=== PATIENT | female | born 1995 | race Caucasian/White ===

== ENCOUNTER 2022-01-27 09:10 | Inpatient (IN) | payer SELFPAY ==
--- NOTE | 2022-01-27 09:29 | DI.US.S_ITS ---
PROCEDURE: US OB LIMITED INDICATIONS: DECELERATED HEART RATE. GROWTH AND BIOPHYSICAL OUTSIDE/PRIOR DATING DATA: Last menstrual period (LMP): Unknown. LMP-based estimated date of delivery (PASHA): Unknown. First dating scan (date and location): 01/27/2022. Estimated date of delivery (PASHA) from first dating scan: 02/01/2022 The calculations are made using the ultrasound PASHA of 02/01/2022. TECHNIQUE: Real-time scanning was performed of the fetus, with image documentation. COMPARISON: None. FINDINGS: A single living intrauterine gestation is present. Presentation: Vertex. Placenta: Placental position is anterior right, without previa. Amniotic fluid index: 8.3 cm, normal range is 5-24 cm. Single deepest vertical pocket is 3.8 cm. heart rate: 140 beats per minute. Maternal cervical canal: Not assessed Estimated gestational age from current scan: 39 weeks 2 days Estimated weight: 3717 g Anatomy: Markedly limited secondary to advanced gestational age. BPP: Tone:0 Breathin Fluid: 2 Movement: 4 Cord Dopplers: 2.0, 1.7, 2.1 IMPRESSION: Single live intrauterine with ultrasound gestational age of 39 weeks 2 days. BPP 08/01 Dictated by: Kalie Blood M.D. on 01/27/2022 at 11:05 Approved by: Kalie Blood M.D. on 01/27/2022 at 11:17
[2022-01-27] MEDS: LACTATED RINGERS 1,000 ML 100 ML IV ×4 (09:45→16:33)
[2022-01-27 09:54] LABS: Add Manual Diff / Slide Review NO; Basophils Absolute Auto 0 /uL (0-100); Basophils Percent Auto 0.3 % (0-2); Eosinophils Absolute Auto 100 /uL (0-450); Eosinophils Percent Auto 1.1 % (2-4); Hematocrit 30.9 % (36-46); Hemoglobin 9.6 g/dL (12.0-16.0); Lymphocytes Absolute Auto 1600 /uL (1100-4500); Lymphocytes Percent Auto 13.7 % (25-40); Mean Corpuscular HGB Conc 31.2 % (30-36); Mean Corpuscular Volume 70.4 fL (80-100); Monocytes Absolute Auto 800 /uL (0-900); Monocytes Percent Auto 7.2 % (3-14); Neutrophils Absolute Auto 9200 /uL (1500-7000); Neutrophils Percent Auto 77.7 % (50-75); Platelet Count 396 X10^3/uL (150-400); Red Blood Cell Count 4.38 X10^6/uL (4.0-5.2); Red Cell Distribution Width 17.9 % (11.6-14.8); White Blood Cell Count 11.8 X10^3/uL (4.5-11.0)
[2022-01-27 09:55] VITALS: BP 110/57
[2022-01-27] MEDS: NIFEdipine 10 MG CAPSULE PO ×2 (09:55→10:18)
[2022-01-27 10:06] LABS: Aspartate Aminotransferase 38 IU/L (14-36); BUN Creatinine Ratio 19.6 (6-22); Blood Urea Nitrogen 9 mg/dL (7-17); Estimated Glomerular Filt Rate > 60 mL/min (>60); Uric Acid 7.3 mg/dL (2.5-6.2)
[2022-01-27 10:12] LABS: Appearance Urine UA CLOUDY; Bilirubin Urine UA NEGATIVE (NEGATIVE); Color Urine UA YELLOW; Glucose Urine UA NEGATIVE (Negative); Ketones Urine UA 2+ (NEGATIVE); Leukocyte Esterase Urine UA 2+ (NEGATIVE); Nitrite Urine UA POSITIVE (Negative); Occult Blood Urine UA 3+ (Negative); Protein Urine UA 2+ (Negative); Urobilinogen Urine UA 0.2 E.U./dL (0.2)
[2022-01-27 10:17] LABS: COVID19 -Nasal RAPID Negative (Negative)
[2022-01-27 10:18] LABS: Add Manual Diff / Slide Review NO; Basophils Absolute Auto 0 /uL (0-100); Basophils Percent Auto 0.2 % (0-2); Eosinophils Absolute Auto 100 /uL (0-450); Hematocrit 31.1 % (36-46); Hemoglobin 9.7 g/dL (12.0-16.0); Lymphocytes Absolute Auto 1600 /uL (1100-4500); Lymphocytes Percent Auto 13.7 % (25-40); Mean Corpuscular HGB Conc 31.1 % (30-36); Mean Corpuscular Hemoglobin 21.9 PG (26-34); Mean Corpuscular Volume 70.4 fL (80-100); Monocytes Absolute Auto 800 /uL (0-900); Monocytes Percent Auto 7.1 % (3-14); Neutrophils Absolute Auto 9100 /uL (1500-7000); Platelet Count 398 X10^3/uL (150-400); Red Blood Cell Count 4.42 X10^6/uL (4.0-5.2); Red Cell Distribution Width 17.9 % (11.6-14.8); White Blood Cell Count 11.7 X10^3/uL (4.5-11.0)
[2022-01-27 10:29] LABS: Bacteria Urine Many (>30); Culture Indicated Urine Specimen Cultured; RBC Urine 10-30/HPF (0-5/HPF); Squamous Epithelial Cell Urine >30 /HPF (0-5/HPF); WBC Urine >100/HPF (0-5/HPF)
--- NOTE | 2022-01-27 10:46 | P.HPOB_ITS ---
OB HPI Date/Time Date of admission: 01/27/22 Date Patient Seen: 01/27/22 Time Patient Seen: 09:45 History of Present Condition Chief complaint: ABD PAIN : 1 Para: 0 care: none Ultrasounds: none Obstetrical complications: none Medical complications OB: none Preadmission Labs Last OB Lab Results: Hematocrit 31.1 % (36-46) L 01/27/22 09:40 Hemoglobin 9.7 g/dL (12.0-16.0) L 01/27/22 09:40 Hepatitis B Surface Antigen Pending 01/27/22 09:40 Rubella Antibody Pending 01/27/22 09:40 Group B Streptococcus (PCR) Pending 01/27/22 09:54 Evaluation Evaluation Dilation (cm): 4.5 Effacement (%): 90 station: -1 Position of cervix: anterior Consistency: soft OB Exam Narrative Exam Narrative: Gen: NAD, sitting comfortably in bed, appears well CV: RRR, no murmurs Resp: clear to auscultation bilaterally Abd: soft, nontender, gravid, fundal height 35cm Ext: no edema Objective Labs Result Diagrams: 01/27/22 09:40 01/27/22 09:40 Labs: Laboratory Results - last 24 hr 01/27/22 01/27/22 01/27/22 09:30 09:40 09:40 WBC 11.7 H 11.8 H RBC 4.42 4.38 Hgb 9.7 L 9.6 L Hct 31.1 L 30.9 L MCV 70.4 L 70.4 L MCH 21.9 L 22.0 L MCHC 31.1 31.2 RDW 17.9 H 17.9 H Plt Count 398 396 Neut % (Auto) 78.0 H 77.7 H Lymph % (Auto) 13.7 L 13.7 L [place] % (Auto) 7.1 7.2 Eos % (Auto) 1.0 L 1.1 L Baso % (Auto) 0.2 0.3 Neut # (Auto) 9100 H 9200 H Lymph # (Auto) 1600 1600 Isabella # (Auto) 800 800 Eos # (Auto) 100 100 Baso # (Auto) 0 0 BUN Creatinine Estimated GFR BUN/Creatinine Ratio Uric Acid AST Urine Color Yellow Urine Appearance Cloudy Urine pH 5.0 Ur Specific [place] 1.020 Urine Protein 2+ H Urine Glucose (UA) Negative Urine Ketones 2+ H Urine Occult Blood 3+ H Urine Nitrate Positive H Urine Bilirubin Negative Urine Urobilinogen 0.2 Ur Leukocyte Esterase 2+ H Urine RBC 10-30/hpf H Urine WBC >100/hpf H Ur Squamous Epith Cells >30 /hpf H Urine Bacteria Many (>30) H Ur Culture Indicated? Specimen cultured SARS-CoV-2 (PCR) 01/27/22 01/27/22 09:40 09:54 WBC RBC Hgb Hct MCV MCH MCHC RDW Plt Count Neut % (Auto) Lymph % (Auto) [place] % (Auto) Eos % (Auto) Baso % (Auto) Neut # (Auto) Lymph # (Auto) [place] # (Auto) Eos # (Auto) Baso # (Auto) BUN 9 Creatinine 0.46 L Estimated GFR > 60 BUN/Creatinine Ratio 19.6 Uric Acid 7.3 H AST 38 H Urine Color Urine Appearance Urine pH Ur Specific [place] Urine Protein Urine Glucose (UA) Urine Ketones Urine Occult Blood Urine Nitrate Urine Bilirubin Urine Urobilinogen Ur Leukocyte Esterase Urine RBC Urine WBC Ur Squamous Epith Cells Urine Bacteria Ur Culture Indicated? SARS-CoV-2 (PCR) Negative Assessment and Plan Assessment and Plan Assessment and Plan narrative: 26yo at []w[]d without any , here in active labor. GBS unkown, Rh unknown. - Expectant management, anticipate - Epidural for pain control when desired - labs ordered - Urine tox ordered due to no care -
[2022-01-27 11:07] LABS: Strep Grp B PCR POS for Grp B Strep
[2022-01-27 11:13] LABS: Hepatitis B Surface Antigen NEGATIVE s/c (NEGATIVE)
[2022-01-27 11:48] LABS: UR Morphine/Opiate cutoff 300 Negative (Negative); Ur Creatinine Normal (Normal); Ur Specific Gravity Normal (Normal); Urine Amphetamines Negative (Negative); Urine Barbiturates Negative (Negative); Urine Benzodiazepines Negative (Negative); Urine Cocaine Negative (Negative); Urine MDMA Negative (Negative); Urine Methadone Negative (Negative); Urine Methamphetamines Negative (Negative); Urine Oxycodone Negative (Negative); Urine Phencyclidine Negative (Negative); Urine Tetrahydrocannabinol Positive (Negative); Urine Tricyclic Antidepressant Negative (Negative); Urine pH Normal (Normal)
[2022-01-27 12:05] LABS: Hep C Virus Ab w/Reflex Quant NEGATIVE s/c (NEGATIVE)
[2022-01-27] MEDS: PENICILLIN G POTASSIUM 5,000,000 UNIT in DEXTROSE 5% IN WATER 250 ML 250 UNIT IV (12:20)
--- NOTE | 2022-01-27 12:27 | PM.OBHP.IH.1 ---
OB HPI Date/Time Date of admission: 01/27/22 Date Patient Seen: 01/27/22 Time Patient Seen: 09:45 History of Present Condition Chief complaint: ABD PAIN : 1 Para: 0 Narrative: 26yo at 39w2d here with regular painful contractions. She denies any vaginal bleeding or LOF. She has felt her baby move minimally today. The pt has not had any care this . She states that she was too scared to attend any appointments. She does report a history of anxiety and depression, on medications in the past but none currently. She denies any history of HTN or diabetes. She does have a family history of diabetes. She denies any alcohol use during her . She reports daily marijuana use, but denies any other recreational drugs. She does not use tobacco products. She is uncertain of her LMP, but believes it was sometime in May or June. care: none Dating criteria OB: based on 3rd trimester US only Ultrasounds: none Obstetrical complications: none Medical complications OB: none Preadmission Labs Last OB Lab Results: Blood Type O Positive 01/27/22 09:40 Antibody Screen Negative 01/27/22 09:40 Hematocrit 31.1 % (36-46) L 01/27/22 09:40 Hemoglobin 9.7 g/dL (12.0-16.0) L 01/27/22 09:40 Hepatitis B Surface Antigen Negative s/c (NEGATIVE) 01/27/22 09:40 Hepatitis C Antibody Negative s/c (NEGATIVE) 01/27/22 09:40 Rubella Antibody 171.0 IU/mL (>15) 01/27/22 09:40 Varicella-Zoster IgG Antibody Pending 01/27/22 09:40 Group B Streptococcus (PCR) Pos for grp b strep H 01/27/22 09:54 Evaluation Evaluation Baseline heart rate: 145 Variability: Moderate (11-25) monitor accelerations: Present Monitor Decelerations: Variable (x2) Contraction Frequency (minutes): 3 Status: Category ll Dilation (cm): 4.5 Effacement (%): 90 station: -1 Position of cervix: anterior Consistency: soft OB Exam Narrative Exam Narrative: Gen: NAD, sitting comfortably in bed, appears well CV: RRR, no murmurs Resp: clear to auscultation bilaterally Abd: soft, nontender, gravid Ext: no edema Uterus Location (Fundal Height): 35 Objective Labs Result Diagrams: 01/27/22 09:40 01/27/22 09:40 Labs: Laboratory Results - last 24 hr 01/27/22 01/27/22 01/27/22 09:30 09:40 09:40 WBC 11.7 H RBC 4.42 Hgb 9.7 L Hct 31.1 L MCV 70.4 L MCH 21.9 L MCHC 31.1 RDW 17.9 H Plt Count 398 Neut % (Auto) 78.0 H Lymph % (Auto) 13.7 L [place] % (Auto) 7.1 Eos % (Auto) 1.0 L Baso % (Auto) 0.2 Neut # (Auto) 9100 H Lymph # (Auto) 1600 [place] # (Auto) 800 Eos # (Auto) 100 Baso # (Auto) 0 BUN Creatinine Estimated GFR BUN/Creatinine Ratio Uric Acid AST Urine Color Yellow Urine Appearance Cloudy Urine pH 5.0 Ur Specific [place] 1.020 Urine Protein 2+ H Urine Glucose (UA) Negative Urine Ketones 2+ H Urine Occult Blood 3+ H Urine Nitrate Positive H Urine Bilirubin Negative Urine Urobilinogen 0.2 Ur Leukocyte Esterase 2+ H Urine RBC 10-30/hpf H Urine WBC >100/hpf H Ur Squamous Epith Cells >30 /hpf H Urine Bacteria Many (>30) H Ur Culture Indicated? Specimen cultured U Opiates 300ng/mL cut Ur Oxycodone Screen Urine Methadone Screen Ur Barbiturates Screen U Tricyclic Antidepress Ur Phencyclidine Scrn Ur Amphetamines Screen U Methamphetamines Scrn Ur MDMA Scrn (Ecstasy) U Benzodiazepines Scrn Urine Cocaine Screen U Marijuana (THC) Screen SARS-CoV-2 (PCR) Hep Bs Antigen Negative Hepatitis C Antibody Rubella Antibody 171.0 Group B Strep (PCR) 01/27/22 01/27/22 01/27/22 09:40 09:40 09:40 WBC 11.8 H RBC 4.38 Hgb 9.6 L Hct 30.9 L MCV 70.4 L MCH 22.0 L MCHC 31.2 RDW 17.9 H Plt Count 396 Neut % (Auto) 77.7 H Lymph % (Auto) 13.7 L [place] % (Auto) 7.2 Eos % (Auto) 1.1 L Baso % (Auto) 0.3 Neut # (Auto) 9200 H Lymph # (Auto) 1600 [place] # (Auto) 800 Eos # (Auto) 100 Baso # (Auto) 0 BUN 9 Creatinine 0.46 L Estimated GFR > 60 BUN/Creatinine Ratio 19.6 Uric Acid 7.3 H AST 38 H Urine Color Urine Appearance Urine pH Ur Specific [place] Urine Protein Urine Glucose (UA) Urine Ketones Urine Occult Blood Urine Nitrate Urine Bilirubin Urine Urobilinogen Ur Leukocyte Esterase Urine RBC Urine WBC Ur Squamous Epith Cells Urine Bacteria Ur Culture Indicated? U Opiates 300ng/mL cut Ur Oxycodone Screen Urine Methadone Screen Ur Barbiturates Screen U Tricyclic Antidepress Ur Phencyclidine Scrn Ur Amphetamines Screen U Methamphetamines Scrn Ur MDMA Scrn (Ecstasy) U Benzodiazepines Scrn Urine Cocaine Screen U Marijuana (THC) Screen SARS-CoV-2 (PCR) Hep Bs Antigen Hepatitis C Antibody Negative Rubella Antibody Group B Strep (PCR) 01/27/22 01/27/22 01/27/22 09:54 09:54 11:00 WBC RBC Hgb Hct MCV MCH MCHC RDW Plt Count Neut % (Auto) Lymph % (Auto) [place] % (Auto) Eos % (Auto) Baso % (Auto) Neut # (Auto) Lymph # (Auto) [place] # (Auto) Eos # (Auto) Baso # (Auto) BUN Creatinine Estimated GFR BUN/Creatinine Ratio Uric Acid AST Urine Color Urine Appearance Urine pH Ur Specific [place] Urine Protein Urine Glucose (UA) Urine Ketones Urine Occult Blood Urine Nitrate Urine Bilirubin Urine Urobilinogen Ur Leukocyte Esterase Urine RBC Urine WBC Ur Squamous Epith Cells Urine Bacteria Ur Culture Indicated? U Opiates 300ng/mL cut Negative Ur Oxycodone Screen Negative Urine Methadone Screen Negative Ur Barbiturates Screen Negative U Tricyclic Antidepress Negative Ur Phencyclidine Scrn Negative Ur Amphetamines Screen Negative U Methamphetamines Scrn Negative Ur MDMA Scrn (Ecstasy) Negative U Benzodiazepines Scrn Negative Urine Cocaine Screen Negative U Marijuana (THC) Screen Positive H SARS-CoV-2 (PCR) Negative Hep Bs Antigen Hepatitis C Antibody Rubella Antibody Group B Strep (PCR) Pos for grp b strep H Assessment and Plan Assessment and Plan Assessment and Plan narrative: 26yo at 39w2d without any care, dating based on ultrasound completed today, here in active labor. GBS positive, Rh unknown (pending). Pt does have untreated anxiety/depression, and smoked marijuana throughout her . Utox confirms this. - Expectant management, anticipate - FHT currently reassuring, but did have 2 deep variable decels earlier and BPP 4/8. Will monitor closely, with low threshold for surgical delivery. Plan to AROM after adequate GBS prophylaxis with FSE at that time to better be able to monitor FHT, amnioinfusion if needed for variable decels - GBS positive, start penicillin prophylaxis now - Epidural for pain control when patient desires - labs sent and pending - Family Consumer Science Teacher gambling box person notified
[2022-01-27] MEDS: ePHEDrine 50 MG/ML VIAL IV (13:17)
[2022-01-27] MEDS: ePHEDrine 50 MG/ML VIAL 10 MG IV ×2 (13:24→13:36)
[2022-01-27] MEDS: FENT 2MCG/ML BUPIV 0.125% EPI 200 MCG/100 ML PLAST..BAG 6 MCG EPIDURAL (13:25)
[2022-01-27] MEDS: ONDANSETRON 4 MG/2 ML INJ IV ×2 (13:53→20:10)
--- NOTE | 2022-01-27 14:17 | PM.AN.REGBLK ---
Regional Block Pre-procedure Procedure: Continuous Lumbar Epidural for L&D Attending OB provider: Socorro Alexander PMH/ROS narrative: term, no complications ASA Class: II Labs: Hct 30.9 % (36-46) L 01/27/22 09:40 Hct 31.1 % (36-46) L 01/27/22 09:40 Plt Count 396 X10^3/uL (150-400) 01/27/22 09:40 Plt Count 398 X10^3/uL (150-400) 01/27/22 09:40 Medications: Current Medications Generic Name Dose Route Start Last Admin Trade Name Freq PRN Reason Stop Dose Admin Calcium Carbonate 1,000 mg 01/27/22 11:40 Calcium Carbonate 500 Mg Tab PO Q2HR PRN Dyspepsia Carboprost Tromethamine 250 mcg 01/27/22 11:40 Carboprost 250 Mcg/Ml Ampul IM Q90M PRN Bleeding Diphenhydramine HCl 25 mg 01/27/22 13:39 Diphenhydramine 50 Mg/Ml Vial IV Q10M PRN Pruritis Ephedrine Sulfate 10 mg 01/27/22 13:39 Ephedrine 50 Mg/Ml Vial IV Q5M PRN Blood pressure decrease more than 20% of baseline. Ephedrine Sulfate 5 mg 01/27/22 13:39 Ephedrine 50 Mg/Ml Vial IV Q5M PRN Blood pressure decrease more than 20% of baseline. Lactated Ringer's 1,000 mls @ 100 mls/hr 01/27/22 09:45 01/27/22 10:49 Lactated Ringers IV 100 mls/hr CONT SILAS Administration Lactated Ringer's 1,000 mls @ 100 mls/hr 01/27/22 11:45 01/27/22 12:20 Lactated Ringers IV 100 mls/hr CONT SILAS Administration Oxytocin/Lactated Ringer's 30 unit in 500 mls @ 200 mls/hr 01/27/22 11:40 Oxytocin Premix IV CONT PRN Bleeding Protocol Tranexamic Acid 1,000 mg/ 100 mls @ 200 mls/hr 01/27/22 11:40 Sodium Chloride IV NOW PRN Bleeding Penicillin G Potassium 3,000,000 unit in 50 mls @ 100 mls/hr 01/27/22 16:00 Penicillin G Potassium IV Q4H SILAS FENT 2MCG/ML BUPIV 0.125% EPI 200 mcg in 100 mls @ 6 mls/hr 01/27/22 13:45 Fentanyl/Bupiv/Ns 2mcg/Ml - 0.125% EPIDURAL CONT SILAS Methylergonovine Maleate 0.2 mg 01/27/22 11:40 Methylergonovine 0.2 Mg Tablet PO Q6HR PRN Heavy Bleeding Methylergonovine Maleate 0.2 mg 01/27/22 11:40 Methylergonovine 0.2 Mg/Ml Vial IM NOW PRN Bleeding Misoprostol 800 mcg 01/27/22 11:40 Misoprostol 200 Mcg Tablet [place] NOW PRN Bleeding Misoprostol 1,000 mcg 01/27/22 11:40 Misoprostol 200 Mcg Tablet [place] NOW PRN Bleeding Misoprostol 400 mcg 01/27/22 11:40 Misoprostol 200 Mcg Tablet SL NOW PRN Bleeding Nalbuphine HCl 2.5 mg 01/27/22 13:39 Nalbuphine 20 Mg/Ml Ampul IV Q10M PRN Pruritis Ondansetron HCl 4 mg 01/27/22 11:40 01/27/22 13:53 Ondansetron 4 Mg/2 Ml Inj IV 4 mg Q4HR PRN Administration Nausea And Vomiting Oxytocin 10 unit 01/27/22 11:40 Oxytocin 10 Unit/Ml Vial IM NOW PRN Bleeding Procedure Insertion date: 01/27/22 Insertion time: 13:00 Prep/Local: betadine x3 and 1% lidocaine Interspace: L3-4, then L2-3 Patient position: sitting Needle: 18 gauge Karl (CSE: 27g [place] through [place], clear CSF, 0.5mL 0.25% bupiv MPF) Loss of resistance with: saline DARIUS at (cm): 5 Catheter placed at SKIN (cm): 10 Catheter in SPACE (cm): 5 Insertion: No CSF, Yes Blood, No Paresthesia with insertion, No Paresthesia with injection and No Test dose reaction Initial Medications TEST DOSE time: 13:02 TEST DOSE: 1.5% lidocaine with epinephrine 1:200k (mL): 3 Infusion INFUSION: 0.125% bupivacaine and with fentanyl 2 mcg/mL Initial rate (mL/hr): 6 Subsequent interventions: L3-4, + Heme with catheter insertion, withdrawn to 4cm in space, still +. Pulled catheter, replaced at L2-3. DARIUS saline at 5cm, catheter to 10, negative aspiration, negative test dose 21:00 5mL clinician bolus of infusate, increased rate to 10. Complete, beginning to push. 21:30 6mL 2-chloroprocaine, pushing. Post-procedure Anesthesia time START: 12:50 Anesthesia time END: 22:10 Post-procedure Anesthesia Assessment: Yes CV function: HR/BP stable, Yes Resp function: RR/sat/airway adequate, Yes Mental status appropriate and No Anesthesia complications
--- NOTE | 2022-01-27 16:32 | PM.OBPNLAB ---
Date/Time Date Patient Seen: 01/27/22 Time Patient Seen: 16:32 Pain Control Pain control: epidural Pelvic Exam Dilation (cm): 6 Effacement (%): 90 station: -1 Amniotic membrane status: Ruptured Comments: AROM performed with production of clear fluid Contractions Contraction frequency (min): 6 Intrauterine tone measurement: 75 Status status: Category ll Heart Rate Baseline: 150 Monitor Accelerations: Present Monitor Decelerations: Variable (x1) Monitor Variability: Moderate Assessment and Plan Comments: 26yo at 39w2d without any care, dating based on ultrasound completed today, here in active labor.? GBS positive, Rh positive.? Pt does have untreated anxiety/depression, and smoked marijuana throughout her .? Utox confirms this. AROM performed with clear fluid present after adequate GBS prophylaxis. FSE and IUPC placed for more accurate monitoring. Contractions not adequate. - Expectant management, anticipate - FHT currently reassuring overall, but is having intermittent variables. Will monitor closely. Plan for amnioinfusion if recurrent. - GBS positive, continue penicillin prophylaxis now - Epidural for pain control in place - Start pitocin to adequate contractions, titrate as tolerated - Log Raft Worker dimension quarry supervisor notified
[2022-01-27] MEDS: PENICILLIN G POTASSIUM 3,000,000 UNIT/50 ML FROZ.PIGGY 100 UNIT IV ×2 (16:33→20:11)
[2022-01-27] MEDS: OXYTOCIN PREMIX 30 UNIT/500 ML PLAST..BAG IV (17:45)
[2022-01-27] MEDS: LIDOCAINE 1% 20 ML 40 ML (22:10)
--- NOTE | 2022-01-27 22:42 | PM.OBPRVD ---
Events: No Care Labor & Delivery Delivery date: 01/27/22 Intrapartal Events: None Cervical ripening method: none Induction method: none Delivery augmentation: rupture of membranes and pitocin Delivery monitor: internal FHT and internal uterine Route of delivery: Episiotomy description: None L&D Laceration Description: Periurethral - 1st Degree and Perineal - 2nd Degree Delivery repair: vicryl and chromic Quantitative Blood Loss: 700 Complications: hemorrhage Narrative: PROCEDURE: at 39w2d based on ultrasound completed at presentation, without any care, presented in active labor and was admitted to Labor and Delivery. The patient progressed through the 1st stage over 12.5 hours. Pain was controlled with an epidural. After adequate GBS prophylaxis with penicillin, AROM was performed with production of clear fluid. FSE and IUPC were placed to allow for better monitoring. Pitocin was initiated due to no significant cervical change and inadequate MVUs. The patient progressed through the 2nd stage over 1.5 hours and delivered a viable female infant with APGARs 8/9 at 22:00 via . Nuchal cord x1 was reduced at the perineum. The cord was cut and clamped after 1 minute. The perineum and vagina were inspected with 2nd degree perineal laceration repaired with 2-O Vicryl, and periurethral laceration repaired with 3-O Chromic. PREPROCEDURE DIAGNOSIS: Intrauterine at 39w2d GBS positive RH positive No care POSTPROCEDURE DIAGNOSIS: Intrauterine at 39w2d, delivered Same as preprocedure Baby 1: Infant gender: Female Presentation: vertex Position: Left Occiput Anterior Placenta delivery description: Spontaneous Cord Vessel Description: 3 Vessels and Nuchal Cord (x1) score (1 min): 8 score (5 min): 9 weight: 7 lb 8.602 oz Plan for aftercare: Routine care
[2022-01-27] MEDS: ACETAMINOPHEN 325 MG TABLET 650 MG PO (23:46)
[2022-01-27] MEDS: IBUPROFEN 600 MG TABLET PO (23:46)
--- NOTE | 2022-01-28 00:36 | PC.NURSE ---
Pitocin started at 2205 on 27Jan2022 at 250ml/hr Per Dr. Alexander's verbal order. Pitocin completed at 0000 on 28Jan2022. FF, bleeding small.
[2022-01-28] MEDS: IBUPROFEN 600 MG TABLET PO ×2 (06:15→18:05)
[2022-01-28] MEDS: ACETAMINOPHEN 325 MG TABLET 650 MG PO ×2 (06:15→18:00)
[2022-01-28 07:43] LABS: Add Manual Diff / Slide Review NO; Basophils Absolute Auto 100 /uL (0-100); Basophils Percent Auto 0.6 % (0-2); Eosinophils Absolute Auto 0 /uL (0-450); Eosinophils Percent Auto 0.2 % (2-4); Hematocrit 22.3 % (36-46); Hemoglobin 7.2 g/dL (12.0-16.0); Lymphocytes Absolute Auto 2300 /uL (1100-4500); Lymphocytes Percent Auto 10.9 % (25-40); Mean Corpuscular HGB Conc 32.3 % (30-36); Mean Corpuscular Hemoglobin 22.2 PG (26-34); Mean Corpuscular Volume 68.7 fL (80-100); Monocytes Absolute Auto 1400 /uL (0-900); Monocytes Percent Auto 6.5 % (3-14); Neutrophils Absolute Auto 17100 /uL (1500-7000); Neutrophils Percent Auto 81.8 % (50-75); Platelet Count 300 X10^3/uL (150-400); Red Blood Cell Count 3.24 X10^6/uL (4.0-5.2); Red Cell Distribution Width 17.8 % (11.6-14.8); White Blood Cell Count 20.9 X10^3/uL (4.5-11.0)
[2022-01-28 08:00] LABS: Anisocytosis 3+; Microcytosis 2+
[2022-01-28] MEDS: DOCUSATE 100 MG CAPSULE PO (10:18)
[2022-01-28] MEDS: PRENATAL VIT,CALC/IRON/FOLIC 1 TABLET 1 TAB PO (10:18)
[2022-01-28] MEDS: FERROUS SULFATE 325 MG TABLET PO (10:18)
--- NOTE | 2022-01-28 17:43 | P.DS_ITS ---
Discharge Providers Provider Date of admission: 01/27/22 09:10 Discharge Date: 01/28/22 Consults: 01/28/22 22:40 Consult to Cash Shortage Investigator Routine Comment: Discharge provider: Socorro Alexander MD Summary Hospital Course Date Patient Seen: 01/28/22 Diagnoses: Intrauterine at 39w2d GBS positive RH positive No care hemorrhage Acute blood loss anemia Hospital Course: The pt presented in active labor. AROM was performed with production of clear fluid. She was started on pitocin due to spacing of contractions. She progressed to complete and had an of a viable baby girl on 01/27/22. A 2nd degree perineal and periurethral laceration were then repaired. The pt did have a hemorrhage with separation of the placenta, however her bleeding was controlled easily with fundal massage. The pt had no complications . At the time of discharge she was voiding, ambulating, and passing flatus without difficulty. Her lochia was decreasing appropriately. She was with good latch. Her pain was well controlled. She will f/u in 6 wks for check. She is undecided regarding contraception, but is definitely interested in getting on something. Peripartum Data Infant Delivery Method: Natural Vaginal Laceration Description: Periurethral - 1st Degree and Perineal - 2nd Degree Episiotomy description: None Procedures: Spontaneous vaginal delivery complications: none 1: Gender: Female Disposition of : home Status at Discharge Cognitive/behavioral status at discharge: oriented Functional status at discharge: independent ambulation Overall status at discharge: patient is progressing back to baseline Time Spent with Patient Time attestation: Total time spent providing and/or coordinating discharge services: Objective Labs Result Diagrams: 01/28/22 07:29 01/27/22 09:40 Labs: Laboratory Results - last 24 hr 01/28/22 07:29 WBC 20.9 H D RBC 3.24 L Hgb 7.2 L Hct 22.3 L MCV 68.7 L MCH 22.2 L MCHC 32.3 RDW 17.8 H Plt Count 300 Neut % (Auto) 81.8 H Lymph % (Auto) 10.9 L [place] % (Auto) 6.5 Eos % (Auto) 0.2 L Baso % (Auto) 0.6 Neut # (Auto) 46969 H Lymph # (Auto) 2300 [place] # (Auto) 1400 H Eos # (Auto) 0 Baso # (Auto) 100 RBC Morphology Not Reportable Anisocytosis 3+ H Microcytosis 2+ H Exam Narrative Exam Narrative: Gen: NAD, sitting comfortably in bed, appears well CV: RRR, no murmurs Resp: clear to auscultation bilaterally Abd: soft, appropriately tender, fundus firm and below the umbilicus, nondistended Ext: no edema Discharge Plan Discharge Plan Patient Disposition: Home Discharge orders & Medications Prescriptions: New acetaminophen 325 mg Tablet 650 mg PO Q6HR PRN (Reason: Pain, Mild (1-3)) Qty: 30 0RF ferrous sulfate 325 mg (65 mg iron) Tablet 325 mg PO DAILY Qty: 30 0RF docusate sodium 100 mg Capsule 100 mg PO DAILY Qty: 30 0RF ibuprofen 600 mg Tablet 600 mg PO Q6HR PRN (Reason: Pain, Mild (1-3)) Qty: 30 0RF Follow up/Referrals: Socorro Alexander MD [Physician] - 03/11/22 1:30 pm Diet/Activity/Treatments Diet: Diet as Tolerated and Regular Skin/Wound/Dressing Care Report to your healthcare provider any signs of infection, such as:: chills, fever, increased pain and unusual drainage Visit Report/Discharge Packet Instructions: DI for Labor and Delivery, Vaginal , DI for Depression Visit Report Forms: Patient Portal/API, Stroke Signs & Symptoms Discharges patient from system. Discharge Date/Time: 01/28/22 19:18
[2022-01-28] MEDS: DERMOPLAST SPRAY 20% 60 ML 1 SPRAY TOP (18:05)
[2022-01-28 18:58] VITALS: BP 116/71; PULSE 98; RESP 20; TEMP 36.7
[2022-01-28] MEDS: TET,DIPH,PERTUSS(ACELL),VAC/PF 0.5 ML SYRINGE IM (19:12)
[2022-01-29 08:31] LABS: Varicella IgG Antibody >4000 index (Immune >165)
[2022-01-29 11:18] LABS: RPR Screen Non Reactive (Non Reactive)
== END 2022-01-28 19:18 | disposition home or self-care (01) | DRG 806 ==
PROVIDERS: Admitting Provider Family Medicine; Referring Provider Family Medicine; Visit Provider Family Medicine
DX: O99.824 Streptococcus B carrier state complicating childbirth (principal); D62 Acute posthemorrhagic anemia; Z37.0 Single live birth; Z3A.39 39 weeks gestation of pregnancy; O09.33 Supervision of pregnancy with insufficient antenatal care, third trimester; O76 Abnormality in fetal heart rate and rhythm complicating labor and delivery; O99.324 Drug use complicating childbirth; F12.90 Cannabis use, unspecified, uncomplicated; O71.82 Other specified trauma to perineum and vulva; O70.1 Second degree perineal laceration during delivery; O99.344 Other mental disorders complicating childbirth; F41.9 Anxiety disorder, unspecified; F32.A Depression, unspecified; Z20.822 Contact with and (suspected) exposure to COVID-19; O99.02 Anemia complicating childbirth
CPT/HCPCS: 01967; 36415; 59050; 59200; 59409; 76815; 76819; 76820; 80055; 80305; 81001; 84450; 84550; 85025; 86787; 86803; 86850; 86900; 86901; 87077; 87086; 87186; 87635; 87653; 99222; 99238; C9803; 90715; G0379; J2405; J2540; J2590